=== PATIENT | female | born 2000 | race Caucasian/White ===

== ENCOUNTER 2023-10-12 21:50 | Emergency (ER) | payer MEDICAID | END 2023-10-12 22:15 | disposition left against medical advice (07) | LOC: ER 21:50 | DX: M79.606 Pain in leg, unspecified (principal); Z53.21 Procedure and treatment not carried out due to patient leaving prior to being seen by health care provider ==

== ENCOUNTER 2024-06-18 10:20 | Emergency (ER) | payer MEDICAID ==
[~2024-06-18] VITALS: Ht 152.4 cm; Wt 62.3 kg
[2024-06-18 13:10] VITALS: BP 104/73; PULSE 100; RESP 18; TEMP 98.4; O2SAT 100
[2024-06-18] MEDS: IBUPROFEN 600 MG TAB PO ONE (13:17)
[2024-06-18] MEDS: cefTRIAXone SOD 1,000 MG VL IM ONE (13:17)
[2024-06-18] MEDS ORDERED: CEPH500C PO (13:18)
[2024-06-18] MEDS ORDERED: NAPR-746 PO (13:18)
== END 2024-06-18 13:28 | disposition home or self-care (01) ==
LOC: ER 10:20
DX: L60.0 Ingrowing nail (principal); Z79.899 Other long term (current) drug therapy
CPT/HCPCS: 96372; 99283; J0696